=== PATIENT | female | born 1995 | race African-American/Black ===

== ENCOUNTER 2019-01-29 01:00 | Emergency (ER) | payer OTHER ==
[~2019-01-29] VITALS: Ht 167.6 cm; Wt 137.9 kg
[2019-01-29 01:38] VITALS: BP 153/81
[2019-01-29 02:01] LABS: BILIRUBIN,URINE NEGATIVE (NEG); CLARITY,URINE CLEAR; COLOR,URINE YELLOW; NITRITE,URINE NEGATIVE (NEG); PH,URINE 6.5; PROTEIN,URINE NEGATIVE (NEG-TRACE)
[2019-01-29 02:06] LABS: BACTERIA,URINE MANY /HPF (0-FEW); SQUAMOUS EPITHELIAL CELL,UR MOD /LPF
[2019-01-29] MEDS ORDERED: METR500T PO (04:02)
--- NOTE | 2019-01-29 04:25 | PHYS DOC ---
Past Medical History Past Medical History: No Pertinent History Alcohol Use: Occasionally Drug Use: None Adult General Chief Complaint Chief Complaint: PELVIC PAIN HPI HPI Patient is a 23 year old -Thai female presents with pelvic pain for the past 3 days. Pain is located in left lower quadrant/pelvic region. It is described as sharp, intermittent and worse with palpation movement and while passing gas. Patient also reports yellow bell vaginal discharge. Denies pain with intercourse, vaginal bleeding, urinary frequency urgency or burning. Patient does report recent yeast infection which she treated with [id number] cream 2 weeks ago. No history of STDs. Patient has Explanon control implant in place [] Review of Systems Review of Systems ROS as per HPI All other systems were reviewed and found to be within normal limits, except as documented in this note. Allergies Allergies Allergies Coded Allergies Type Severity Reaction Last Updated Verified No Known Drug Allergies 01/29/19 No Physical Exam Physical Exam Constitutional: Well developed, well nourished, no acute distress, non-toxic appearance. [] HENT: Normocephalic, atraumatic, bilateral external ears normal. Lungs & Thorax: Bilateral breath sounds clear to auscultation [] Abdomen: Bowel sounds normal, soft, left pelvic tenderness, no masses, no pulsatile masses. [] : External genitalia, normal, thick grayish discharge present in the vagina, no lesions present, no cervical motion tenderness.] Back: No tenderness, no CVA tenderness. [] Extremities: No tenderness, no cyanosis, no clubbing, ROM intact, no edema. [] Neurologic: Alert and oriented X 3, normal motor function, normal sensory function, no focal deficits noted. [] Psychologic: Affect normal, judgement normal, mood normal. [] Current Patient Data Vital Signs Vital Signs Date Time Temp Pulse Resp B/P (MAP) Pulse Ox O2 Delivery O2 Flow Rate FiO2 01/29/19 01:38 102 18 153/81 (105) 100 Room Air 01/29/19 01:05 98.9 98.9 Lab Values Laboratory Tests Test 01/29/19 01:03 01/29/19 01:12 Urine Collection Type Unknown Urine Color Yellow Urine Clarity Clear Urine pH 6.5 Urine Specific [place] 1.025 Urine Protein Negative mg/dL (NEG-TRACE) Urine Glucose (UA) Negative mg/dL (NEG) Urine Ketones (Stick) Negative mg/dL (NEG) Urine Blood Trace (NEG) Urine Nitrite Negative (NEG) Urine Bilirubin Negative (NEG) Urine Urobilinogen Dipstick 1.0 mg/dL (0.2 mg/dL) Urine Leukocyte Esterase Negative (NEG) Urine RBC 1-2 /HPF (0-2) Urine WBC 1-4 /HPF (0-4) Urine Squamous Epithelial Cells Mod /LPF Urine Bacteria Many /HPF (0-FEW) Urine Mucus Marked /LPF POC Urine HCG, Qualitative Hcg negative (Negative) Microbiology 01/29/19 Wet Prep - Final, Complete EKG EKG [] Radiology/Procedures Radiology/Procedures [] Course & Med Decision Making Course & Med Decision Making Pertinent Labs and Imaging studies reviewed. (See chart for details) [Abx rx provided.] Dragon Disclaimer Dragon Disclaimer This electronic medical record was generated, in whole or in part, using a voice recognition dictation system. Departure Departure Impression: Primary Impression: Pelvic pain Additional Impression: Bacterial vaginosis Disposition: 01 HOME/RESIDENCE PRIOR TO ADM Condition: GOOD Patient Instructions: Pelvic Pain, Female, [id number], Bacterial Vaginosis, [id number] Additional Instructions: Please take Tylenol or ibuprofen for pain and newly prescribed antibiotics as directed. Follow-up with PCP or [facility] 10-12 days for reevaluation. Return to the ED if new or worsening symptoms. Scripts Metronidazole (FLAGYL) 500 Mg Tablet 500 MG PO TID, #21 TAB Prov: FRANCO ALAMO DO 01/29/19 Problem Qualifiers FRANCO ALAMO DO Jan 29, 2019 04:25
[2019-02-01 01:08] LABS: GC PROBE Negative (Negative)
== END 2019-01-29 04:05 | disposition home or self-care (01) ==
LOC: ER 01:00
DX: N76.0 Acute vaginitis (principal); B96.89 Other specified bacterial agents as the cause of diseases classified elsewhere; R10.2 Pelvic and perineal pain
CPT/HCPCS: 81001; 81025; 87070; 87086; 87491; 87591; 99284; Q0111